=== PATIENT | female | born 1950 | race Caucasian/White ===

== ENCOUNTER 2021-06-13 09:46 | Emergency (ER) | payer OTHER ==
[~2021-06-13] VITALS: Ht 162.6 cm; Wt 99.8 kg
[2021-06-13 09:49] VITALS: BP 126/74
--- NOTE | 2021-06-13 09:58 | NUR ---
PATIENT AMBULATED TO BED11.
--- NOTE | 2021-06-13 09:59 | NUR ---
Patient being evaluated by DR TALAMANTES at bedside.
--- NOTE | 2021-06-13 10:38 | NUR ---
PATIENT TAKEN FOR CT SCAN
--- NOTE | 2021-06-13 11:02 | NUR ---
RAFAELA WALKED TO LAB AND RECIEVED BY [facility].
[2021-06-13] MEDS ORDERED: NACL 0.9% 1,000 ML IV ONE (12:15)
[2021-06-13 12:43] LABS: LIPASE 92 U/L (73-393)
[2021-06-13 14:16] LABS: ALBUMIN 3.4 g/dL (3.4-5.0); ANION GAP 16.8 (8-16); ASPARTATE AMINOTRANSFERASE 25 U/L (15-37); CHLORIDE 106 mmol/L (98-107); CREATININE 0.8 mg/dL (0.6-1.3); GLUCOSE 87 mg/dL (74-106); POTASSIUM 4.8 mmol/L (3.5-5.1); SODIUM SERUM 142 mmol/L (136-145); TOTAL BILIRUBIN 0.5 mg/dL (0.0-1.0); UREA NITROGEN, BLOOD 21 mg/dL (7-18)
[2021-06-13 15:49] VITALS: BP 126/74
[2021-06-13 21:02] LABS: APPEARANCE,URINE CLEAR (CLEAR); BILIRUBIN,URINE NEGATIVE (NEGATIVE); BLOOD, URINE NEGATIVE (NEGATIVE); LEUKOCYTE ESTERASE ,URINE NEGATIVE (NEGATIVE); NITRITE, URINE NEGATIVE (NEGATIVE); PH,URINE 5.5 (5.0-9.0); UGLUCOSE NEGATIVE (NEGATIVE)
[2021-06-13 21:27] LABS: COLOR,URINE STRAW (YELLOW)
== END 2021-06-13 15:00 | disposition home or self-care (01) ==
LOC: MED 09:46
DX: R53.1 Weakness (principal); R42 Dizziness and giddiness; Z88.0 Allergy status to penicillin; Z20.822 Contact with and (suspected) exposure to COVID-19
CPT/HCPCS: 36415; 70450; 70496; 70498; 71045; 80053; 81003; 83605; 83690; 83880; 84484; 87040; 87426; 93005; 96360; 99285; J7030; Q9967